=== PATIENT | female | born 1995 | race African-American/Black ===

== ENCOUNTER 2023-03-28 11:52 | Emergency (ER) | payer SELFPAY ==
--- NOTE | ~2023-03-28 | CT_ITS ---
EXAMINATION: CT brain wo con DATE: 03/28/2023 14:24 INDICATION: Headache TECHNIQUE: Computed tomography (CT) of the head was performed without intravenous contrast. The mA wa s adjusted according to patient size. Iterative reconstruction technique was employed. Exam dose: 52 9.67 mGy-cm total exam DLP. COMPARISON: None FINDINGS: No intracranial mass lesion or hemorrhage or cerebrovascular accident, midline shift or mas s effect. Normal ventricular size. Normal khan-white matter differentiation. No subdural or epidural hematoma. There is an opacified posterior left ethmoid air cell. The included paranasal sinuses and mastoid air cells otherwise are normally developed and aerated. No fracture or bone destruction of the cranial vault. IMPRESSION: No intracranial abnormality Reviewed, dictated and finalized at [facility]. Reviewed, dictated and finalized at [facility] IMPRESSION: No intracranial abnormality
[2023-03-28 11:56] VITALS: BP 117/61; PULSE 77; RESP 18; TEMP 36.7; O2SAT 98
--- NOTE | 2023-03-28 11:59 | ECG_ITS ---
Measurements Intervals [place] Rate: 73 P: 26 MI: 165 QRS: 16 QRSD: 78 T: 13 QT: 385 QTc: 425 Interpretive Statements SINUS RHYTHM WITH SINUS ARRHYTHMIA BASELINE ARTIFACT- I, II, AVR, AVL, AVF NORMAL ECG NO PREVIOUS ECG AVAILABLE FOR COMPARISON Electronically Signed On 03-28-2023 12:07:16 [employer] by Ruddy Lorenzo D.O.
[2023-03-28 12:41] LABS: Influenza A QL RT-PCR Negative (Negative); Influenza B QL RT-PCR Negative (Negative); SARS-CoV-2 RNA PCR Negative (Negative)
--- NOTE | 2023-03-28 14:03 | ED.GENADULT ---
HPI - General Adult General Chief complaint: Upper Respiratory Infection Stated complaint: flu like symptoms Time Seen by Provider: 03/28/23 20:40 History of Present Illness HPI narrative: Rose Black is a 28 y/o female who presents wtih reported hx of Osteogenesis imperfecta, seizures currently on Keppra 400mg BID who presents today with this ongoing headache for 2 months, she has tried to take OTC medications that has not helped. She reports of having intermittent blurry vision. She also reports of sore throat/ cough for about 1 week. Related Data Allergies Allergy/AdvReac Type Severity Reaction Status Date / Time No Known Allergies Allergy Verified 03/28/23 14:37 Course Vital Signs Vital signs: Vital Signs Temperature 36.7 C 03/28/23 11:56 Pulse Rate 77 03/28/23 11:56 Respiratory Rate 18 03/28/23 11:56 Blood Pressure 117/61 03/28/23 11:56 Pulse Oximetry 98 03/28/23 11:56 Oxygen Delivery Room Air 03/28/23 11:56 Temperature 36.7 C 03/28/23 11:56 Pulse Rate 65 03/28/23 22:16 Respiratory Rate 20 03/28/23 22:16 Blood Pressure 109/62 03/28/23 22:16 Pulse Oximetry 100 03/28/23 22:16 Oxygen Delivery Room Air 03/28/23 20:37 Medical Decision Making Vital Signs Vital Signs: Vital Signs Temperature 36.7 C 03/28/23 11:56 Pulse Rate 77 03/28/23 11:56 Respiratory Rate 18 03/28/23 11:56 Blood Pressure 117/61 03/28/23 11:56 Pulse Oximetry 98 03/28/23 11:56 Oxygen Delivery Room Air 03/28/23 11:56 Temperature 36.7 C 03/28/23 11:56 Pulse Rate 65 03/28/23 22:16 Respiratory Rate 20 03/28/23 22:16 Blood Pressure 109/62 03/28/23 22:16 Pulse Oximetry 100 03/28/23 22:16 Oxygen Delivery Room Air 03/28/23 20:37 Lab Data 03/28/23 15:40 03/28/23 15:40 Labs: Lab Results 03/28/23 03/28/23 03/28/23 Range/Units 11:58 15:40 16:18 WBC 5.4 (4.5-10.0) K/mm3 RBC 4.58 (4.2-5.4) M/mm3 Hgb 14.0 (12.0-15.0) g/dL Hct 42.8 (37.0-47.0) % MCV 93.4 (80-100) fl MCH 30.6 (26-34) pg MCHC 32.7 (32-36) g/dl RDW 13.2 (11.5-14.5) % Plt Count 265 (150-375) k/mm3 MPV 9.7 (7.4-10.4) fl Immature Gran % (Auto) 0.6 H (0-0.5) % Neut % (Auto) 53.7 (45.5-73.1) % Lymph % (Auto) 35.5 (18.3-44.2) % [place] % (Auto) 6.3 (2.6-8.5) % Eos % (Auto) 2.8 (0-4.4) % Baso % (Auto) 1.1 (0.2-1.2) % Lymph # (Auto) 1.93 (0.9-3.2) K/mm3 [place] # (Auto) 0.3 (0.1-0.6) K/mm3 Eos # (Auto) 0.2 (0-0.3) K/mm3 Baso # (Auto) 0.1 (0.0-0.1) K/mm3 Abs Immat Gran (auto) 0.03 (0.00-0.031) K/mm3 Absolute Neuts (auto) 2.9 (1.3-6.7) K/mm3 Absolute Nucleated RBC 0.0 (0.0-0.012) K/mm3 Nucleated RBC % 0.0 (0.0-0.2) % Sodium 139 (137-145) mmol/L Potassium 4.2 (3.4-5.0) mmol/L Chloride 108 H (98-107) mmol/L Carbon Dioxide 21 L (22-30) mmol/L Anion Gap 10 (8-16) mmol/L BUN 7 (7-17) mg/dL Creatinine 0.60 L (0.7-1.0) mg/dL Estim Creat Clear Calc Not Reportable Estimated GFR > 60 (59 - ) Glucose 89 (65-110) mg/dL Lactic Acid 0.8 (0.7-2.0) mmol/L Calcium 8.8 (8.4-10.2) mg/dL Total Bilirubin 0.6 (0.2-1.3) mg/dL AST 20 (14-36) U/L ALT 10 (6-35) U/L Alkaline Phosphatase 96 (38-126) U/L Total Protein 8.0 (6.3-8.2) g/dL Albumin 4.2 (3.5-5.1) g/dL Urine Color Dark yellow (Yellow) Urine Appearance Clear (Clear) Urine pH 7.0 (5.0-9.0) Ur Specific [place] 1.017 (1.001-1.035) Urine Protein Negative (Negative) mg/dL Urine Glucose (UA) Negative (Negative) mg/dL Urine Ketones Negative (Negative) mg/dL Ur Blood (Man) Negative (Negative) Urine Nitrate Negative (Negative) Urine Bilirubin Negative (Negative) Urine Urobilinogen 0.2 (<2.0) mg/dL Leukocyte Esterase Rfl Trace H (Negative) KATHLEEN/UL Urine RBC 0-2 (0-2) /h
[2023-03-28] MEDS: ACETAMINOPHEN 500 MG TABLET 1000 MG PO (14:37)
[2023-03-28 15:36] VITALS: BP 107/64; PULSE 60; RESP 18; O2SAT 100
--- NOTE | 2023-03-28 15:37 | PC.NURSE ---
pt unable to void at this time
[2023-03-28 15:49] LABS: Basophils Absolute Auto 0.1 K/mm3 (0.0-0.1); Basophils Percent Auto 1.1 % (0.2-1.2); Eosinophils Absolute Auto 0.2 K/mm3 (0-0.3); Eosinophils Percent Auto 2.8 % (0-4.4); Hematocrit 42.8 % (37.0-47.0); Immature Granulocyte Absolute 0.03 K/mm3 (0.00-0.031); Immature Granulocyte Percent A 0.6 % (0-0.5); Lymphocytes Absolute Auto 1.93 K/mm3 (0.9-3.2); Lymphocytes Percent Auto 35.5 % (18.3-44.2); Mean Corpuscular HGB Conc 32.7 g/dl (32-36); Mean Corpuscular Hemoglobin 30.6 pg (26-34); Mean Corpuscular Volume 93.4 fl (80-100); Mean Platelet Volume 9.7 fl (7.4-10.4); Monocytes Absolute Auto 0.3 K/mm3 (0.1-0.6); Monocytes Percent Auto 6.3 % (2.6-8.5); Neutrophils Absolute Auto 2.9 K/mm3 (1.3-6.7); Neutrophils Percent Auto 53.7 % (45.5-73.1); Platelet Count Result 265 k/mm3 (150-375); Red Blood Count 4.58 M/mm3 (4.2-5.4); Red Cell Distribution Width 13.2 % (11.5-14.5); White Blood Count 5.4 K/mm3 (4.5-10.0)
[2023-03-28 15:55] LABS: Lactic Acid Reflex 0.8 mmol/L (0.7-2.0)
[2023-03-28 15:56] LABS: Alanine Aminotransferase 10 U/L (6-35); Albumin Level 4.2 g/dL (3.5-5.1); Alkaline Phosphatase 96 U/L (38-126); Anion Gap 10 mmol/L (8-16); Aspartate Amino Transferase 20 U/L (14-36); Bilirubin,Total 0.6 mg/dL (0.2-1.3); Blood Urea Nitrogen 7 mg/dL (7-17); Calcium 8.8 mg/dL (8.4-10.2); Carbon Dioxide 21 mmol/L (22-30); Chloride 108 mmol/L (98-107); Estimated Glomerular Filt Rate > 60; Glucose 89 mg/dL (65-110); Potassium 4.2 mmol/L (3.4-5.0); Sodium 139 mmol/L (137-145)
[2023-03-28 16:10] LABS: Strep Group A RT-PCR NOT DETECTED (Negative)
[2023-03-28 16:27] LABS: Appearance Urine Clear (Clear); Bacteria Urine None Seen /hpf; Bilirubin Urine Negative (Negative); Blood Urine Negative (Negative); Color Urine Dark Yellow (Yellow); Glucose Urine UA Negative (Negative); Ketones Urine Negative (Negative); Leukocyte Esterase Ur Trace LEU/UL (Negative); Nitrate Urine Negative (Negative); Non Pathogenic Casts 0-2; Protein Urine Negative (Negative); RBC Urine 0-2 /hpf (0-2); Specific Grav Ur 1.017 (1.001-1.035); Squamous Epithelial Cell Urine None seen /hpf (Few); Urobilinogen Urine 0.2 mg/dL (<2.0); WBC Urine 0-5 /hpf
[2023-03-28 16:28] LABS: Add Urine Microscopic? YES
--- NOTE | 2023-03-28 20:58 | ED.GENADULT ---
HPI - General Adult General Chief complaint: Upper Respiratory Infection Stated complaint: flu like symptoms Time Seen by Provider: 03/28/23 20:40 History of Present Illness HPI narrative: Pt presents to the ER with ESPINO for the past few months. Strong family history of aneursyms. Left face and body numbness with headaches. Eye twitching and toe jumping. Baby born 5 months, IUD also misplaced. Increased stress. She has a history of seizures and has follow up with neurology in two months. Generalized body aches now with sore throat and ear draining. Related Data Allergies Allergy/AdvReac Type Severity Reaction Status Date / Time No Known Allergies Allergy Verified 03/28/23 14:37 Review of Systems Review of Systems: ROS neg except what is in the HPI Exam Narrative: GENERAL: Well-appearing, well-nourished, and in no acute distress. HEAD: Normocephalic, atraumatic. EYES: PERRLA and EOMI. ENT: Nares clear, no rhinorrhea or epistaxis. Mucous membranes moist. NECK: Supple. CHEST: Clear to auscultation. No respiratory distress. HEART: Regular rate and rhythm. ABDOMEN: Soft, nontender, nondistended. EXTREMITIES: Normal range of motion. No edema. SKIN: Warm, dry, no rash. NEURO: No focal deficits. Alert and oriented x3. PSYCH: Normal mood and affect. Course Course Emergency Course: labs ordered and unremarkable Vital Signs Vital signs: Vital Signs Temperature 36.7 C 03/28/23 11:56 Pulse Rate 77 03/28/23 11:56 Respiratory Rate 18 03/28/23 11:56 Blood Pressure 117/61 03/28/23 11:56 Pulse Oximetry 98 03/28/23 11:56 Oxygen Delivery Room Air 03/28/23 11:56 Temperature 36.7 C 03/28/23 11:56 Pulse Rate 60 03/28/23 15:36 Respiratory Rate 18 03/28/23 15:36 Blood Pressure 107/64 03/28/23 15:36 Pulse Oximetry 100 03/28/23 15:36 Oxygen Delivery Room Air 03/28/23 20:37 Medical Decision Making MDM Narrative Medical decision making narrative: Vital signs stable. Labs grossly unremarkable. Head CT normal. Patient has had symptoms intermittently for a long time. She has follow-up with Neurology. Will start on Imitrex as needed for migraines as well as renew [facility] Vital Signs Vital Signs: Vital Signs Temperature 36.7 C 03/28/23 11:56 Pulse Rate 77 03/28/23 11:56 Respiratory Rate 18 03/28/23 11:56 Blood Pressure 117/61 03/28/23 11:56 Pulse Oximetry 98 03/28/23 11:56 Oxygen Delivery Room Air 03/28/23 11:56 Temperature 36.7 C 03/28/23 11:56 Pulse Rate 60 03/28/23 15:36 Respiratory Rate 18 03/28/23 15:36 Blood Pressure 107/64 03/28/23 15:36 Pulse Oximetry 100 03/28/23 15:36 Oxygen Delivery Room Air 03/28/23 20:37 Lab Data 03/28/23 15:40 03/28/23 15:40 Labs: Lab Results 03/28/23 03/28/23 03/28/23 Range/Units 11:58 15:40 16:18 WBC 5.4 (4.5-10.0) K/mm3 RBC 4.58 (4.2-5.4) M/mm3 Hgb 14.0 (12.0-15.0) g/dL Hct 42.8 (37.0-47.0) % MCV 93.4 (80-100) fl MCH 30.6 (26-34) pg MCHC 32.7 (32-36) g/dl RDW 13.2 (11.5-14.5) % Plt Count 265 (150-375) k/mm3 MPV 9.7 (7.4-10.4) fl Immature Gran % (Auto) 0.6 H (0-0.5) % Neut % (Auto) 53.7 (45.5-73.1) % Lymph % (Auto) 35.5 (18.3-44.2) % [place] % (Auto) 6.3 (2.6-8.5) % Eos % (Auto) 2.8 (0-4.4) % Baso % (Auto) 1.1 (0.2-1.2) % Lymph # (Auto) 1.93 (0.9-3.2) K/mm3 [place] # (Auto) 0.3 (0.1-0.6) K/mm3 Eos # (Auto) 0.2 (0-0.3) K/mm3 Baso # (Auto) 0.1 (0.0-0.1) K/mm3 Abs Immat Gran (auto) 0.03 (0.00-0.031) K/mm3 Absolute Neuts (auto) 2.9 (1.3-6.7) K/mm3 Absolute Nucleated RBC 0.0 (0.0-0.012) K/mm3 Nucleated RBC % 0.0 (0.0-0.2) % Sodium 139 (137-145) mmol/L Potassium 4.2 (3.4-5.0) mmol/L Chloride 108 H (98-107) mmol/L Carbon Dioxide 21 L (22-30) mmol/L Anion Gap 10 (8-16) mmol/L BUN 7 (7-17) mg/dL Creatinine 0.
[2023-03-28] MEDS: diphenhydrAMINE HCl CAP 25 MG CAPSULE 50 MG PO (21:16)
[2023-03-28] MEDS: METOCLOPRAMIDE HCL 10 MG TABLET PO (21:16)
[2023-03-28] MEDS: IBUPROFEN 600 MG TABLET PO (21:16)
[2023-03-28] MEDS: SUMAtriptan SUCCINATE 25 MG TABLET 100 MG PO (22:14)
[2023-03-28 22:16] VITALS: BP 109/62; PULSE 65; RESP 20; O2SAT 100
== END 2023-03-28 22:17 | disposition home or self-care (01) ==
PROVIDERS: Nurse Practitioner Family; Student in an Organized Health Care Education/Training Program; Emergency Provider Emergency Medicine
DX: J06.9 Acute upper respiratory infection, unspecified (principal); G43.909 Migraine, unspecified, not intractable, without status migrainosus; G40.909 Epilepsy, unspecified, not intractable, without status epilepticus; Z20.822 Contact with and (suspected) exposure to COVID-19
CPT/HCPCS: 36415; 70450; 80053; 81001; 81025; 83605; 85025; 87636; 87651; 93005; 99284; A9270